=== PATIENT | male | born 1970 | race Asian ===

== ENCOUNTER → 2019-12-27 | Outpatient (CLI) | payer BC, OTHER | LOC: SJCVCIMAG 09:23 | DX: I08.3 Combined rheumatic disorders of mitral, aortic and tricuspid valves (principal); I71.2 Thoracic aortic aneurysm, without rupture; E78.5 Hyperlipidemia, unspecified ==

== ENCOUNTER → 2021-03-15 | Outpatient (CLI) | payer OTHER | LOC: SJCVCIMAG 02-07 09:10 | PROVIDERS: ATTEND Internal Medicine | DX: I08.8 Other rheumatic multiple valve diseases (principal) ==